=== PATIENT | male | born 1965 | race Caucasian/White ===

== ENCOUNTER 2018-12-21 16:28 | Emergency (ER) | payer BC ==
--- NOTE | 2018-12-21 16:39 | PDOC ---
Rapid Medical Evaluation Time Seen by Provider: 12/21/18 16:30 Medical Evaluation: 12/21/18 16:30 I have performed a brief in-person evaluation of this patient. The patient presents with a chief complaint of: chest pressure with SOB Pertinent physical exam findings: Lungs CTAB. RRR. No m/r/g. I have ordered the following: CXR, EKG, urine, labs The patient will proceed to the ED for further evaluation. Discharge Disposition - Diagnosis Chest tightness or pressure - Referrals - Patient Instructions - Post Discharge Activity
[2018-12-21 16:40] VITALS: TEMP 97.6; BMI 35.5
[2018-12-21 17:08] LABS: HEMATOCRIT 44.6 % (35.4-49); HEMOGLOBIN 15.9 GM/dL (11.7-16.9); MCH 31.9 pg (25.7-33.7); MCHC 35.6 g/dl (32.0-35.9); MEAN CELL VOLUME 89.7 fl (80-96); MEAN PLT VOLUME 7.9 fl (7.5-11.1); PLATELET COUNT 291 K/MM3 (134-434); RBC 4.97 M/mm3 (4.00-5.60); RDW 12.4 % (11.9-15.9); WHITE BLOOD COUNT 4.9 K/mm3 (4.0-10.0)
[2018-12-21 17:12] LABS: URINE APPEARANCE CLEAR; URINE BILIRUBIN NEGATIVE (<2.0 mg/dL); URINE COLOR LTYELLOW; URINE GLUCOSE (UA) NEGATIVE (NEGATIVE); URINE KETONE NEGATIVE (NEGATIVE); URINE LEUK ESTERASE NEGATIVE (NEGATIVE); URINE NITRITE NEGATIVE (NEGATIVE); URINE PROTEIN NEGATIVE (NEGATIVE); URINE UROBILINOGEN NEGATIVE mg/dL (0.2-1.0)
[2018-12-21 17:13] LABS: EPI CELLS RARE /HPF (FEW); URINE MUCUS RARE
--- NOTE | 2018-12-21 17:17 | PDOC ---
History of Present Illness - General Chief Complaint: Shortness of Breath Stated Complaint: SHORTNESS OF BREATH Time Seen by Provider: 12/21/18 16:30 History Source: Patient - History of Present Illness Presenting Symptoms: Chest Pain Timing/Duration: reports: constant Past History - Past Medical History Allergies/Adverse Reactions: Allergies Allergy/AdvReac Type Severity Reaction Status Date / Time No Known Allergies Allergy Verified 12/21/18 16:36 Home Medications: Ambulatory Orders NK [No Known Home Medication] 12/21/18 COPD: No - Immunization History Immunization Up to Date: Yes - Suicide/Smoking/Psychosocial Hx Smoking History: Never smoked Hx Alcohol Use: No Drug/Substance Use Hx: No Review of Systems - Review of Systems Constitutional: No: Chills, Fever, Weakness Respiratory: Yes: Shortness of Breath Cardiac (ROS): Yes: Chest Pain, Palpitations. No: Lightheadedness, Syncope ABD/GI: No: Nausea, Vomiting *Physical Exam - Vital Signs Last Vital Signs Temp Pulse Resp BP Pulse Ox 97.6 F 61 17 152/73 98 12/21/18 16:36 12/21/18 16:36 12/21/18 16:36 12/21/18 16:36 12/21/18 16:36 - Physical Exam General Appearance: Yes: Appropriately Dressed. No: Apparent Distress HEENT: positive: Normal Voice Neck: positive: Supple Respiratory/Chest: positive: Lungs Clear, Normal Breath Sounds. negative: Respiratory Distress Cardiovascular: positive: Regular Rate, S1, S2 Gastrointestinal/Abdominal: positive: Soft. negative: Tender, Pulsatile Mass Extremity: positive: Normal Inspection Integumentary: positive: Dry, Warm Neurologic: positive: Fully Oriented, Alert, Normal Mood/Affect Heart Score/ECG Review - History History: Slightly suspicious - Electrocardiogram EKG: Normal - Age Age: 45-65 - Risk Factors Based on the list above the patient has:: No risk factors known - Troponin Troponin: </= normal limit - Score Heart Score - Total: 1 Moderate Sedation - Procedure Monitoring Vital Signs: Procedure Monitoring Vital Signs Temperature 97.6 F 12/21/18 16:36 Pulse Rate 61 12/21/18 16:36 Respiratory Rate 17 12/21/18 16:36 Blood Pressure 152/73 12/21/18 16:36 O2 Sat by Pulse Oximetry (%) 98 12/21/18 16:36 ED Treatment Course - LABORATORY CBC & Chemistry Diagram: 12/21/18 17:08 12/21/18 17:08 - ADDITIONAL ORDERS Additional order review: Laboratory Results 12/21/18 12/21/18 12/21/18 17:50 17:08 17:08 PT with INR 10.70 INR 0.91 D-Dimer 396 Sodium 135 L Potassium 4.2 Chloride 100 Carbon Dioxide 29 Anion Gap 7 L BUN 17 Creatinine 1.1 Creat Clearance w eGFR > 60 Random Glucose 87 Calcium 8.7 Magnesium 2.3 Total Bilirubin 0.5 AST 57 H ALT 52 Alkaline Phosphatase 108 Creatine Kinase 2230 H Creatine Kinase Index 0.1 CK-MB (CK-2) 2.3 Troponin I 0.03 Total Protein 9.2 H Albumin 4.1 Urine Color Urine Appearance Urine pH Ur Specific [place] Urine Protein Urine Glucose (UA) Urine Ketones Urine Blood Urine Nitrite Urine Bilirubin Urine Urobilinogen Ur Leukocyte Esterase Urine WBC (Auto) Urine RBC (Auto) Ur Epithelial Cells Urine Mucus 12/21/18 17:00 PT with INR INR D-Dimer Sodium Potassium Chloride Carbon Dioxide Anion Gap BUN Creatinine Creat Clearance w eGFR Random Glucose Calcium Magnesium Total Bilirubin AST ALT Alkaline Phosphatase Creatine Kinase Creatine Kinase Index CK-MB (CK-2) Troponin I Total Protein Albumin Urine Color Ltyellow Urine Appearance Clear Urine pH 6.0 Ur Specific [place] 1.018 Urine Protein Negative Urine Glucose (UA) Negative Urine Ketones Negative Urine Blood 1+ H Urine Nitrite Negative Urine Bilirubin Negative Urine Urobilinogen Negative Ur Leukocyte Esterase Negative Urine WBC (Auto) <1 Urine RBC (Auto) 1 Ur Epithelial Cells Rare Urine Mucus Rare 12/21/18 17:08 RBC 4.97 MCV 89.7 MCHC 35.6 RDW 12.4 MPV 7.9 Neutrophils % No Result Required. Lymphocytes % No Result Required. - Medications Given in the ED: ED Medications Discontinued Medications Generic Name Dose Route Start Last Admin Trade Name Freq PRN Reason Stop Dose Admin Sodium Chloride 1,000 ml 12/21/18 18:36 12/21/18 18:36 Normal Saline - IV 12/21/18 18:37 1,000 ml NOW ONE Administration Medical Decision Making - Medical Decision Making 12/21/18 17:15 53 yo M, no sig hx, here w/ chest pain. Pt states 3 days ago, he felt sudden onset L sided CP w/ "electric shock" down his L arm. Also had some palpitations at that time. States symptoms resolved at some point but yesterday started having diffuse chest pressure that is constant with an intensity of 7 out of 10 with no exacerbating or alleviating factors. Also reports intermittent shortness of breath. No diaphoresis, nausea, vomiting, leg pain or swelling. No history of similar pain. States he had a negative stress test 3 years ago see exam R/o ACS, less likely dissection or PE -ekg -cxr -labs -dispo pending 12/21/18 19:01 Labs only remarkable for CK of > 2K, troponin negative. As discussed with Dr. Vitale, will give IV fluids and repeat troponin in 3 hours. At this point , patient was signed out to JEFFREY Cee *DC/Admit/Observation/Transfer Diagnosis at time of Disposition: Chest tightness or pressure - Referrals Referrals: Nando Hoffman [Primary Care Provider] - - Patient Instructions - Post Discharge Activity
[2018-12-21 17:19] LABS: INR 0.91 (0.83-1.09); PROTHROMBIN TIME (PATIENT) 10.7 SEC (9.7-13.0)
[2018-12-21 17:58] LABS: ALBUMIN 4.1 g/dl (3.4-5.0); ALK PHOS 108 U/L (45-117); ANION GAP 7 MMOL/L (8-16); BILIRUBIN,TOTAL 0.5 mg/dL (0.2-1); BLOOD UREA NITROGEN 17 mg/dL (7-18); CALCIUM 8.7 mg/dL (8.5-10.1); CHLORIDE 100 mmol/L (98-107); CO2 29 mmol/L (21-32); CREATININE 1.1 mg/dL (0.55-1.3); GLUCOSE,RANDOM 87 mg/dL (74-106); MAGNESIUM 2.3 mg/dL (1.8-2.4); POTASSIUM 4.2 mmol/L (3.5-5.1); SGOT/AST 57 U/L (15-37); SGPT/ALT 52 U/L (13-61); SODIUM 135 mmol/L (136-145); TOT PROT 9.2 g/dl (6.4-8.2)
[2018-12-21 18:24] LABS: PLATELET ESTIMATE ADEQUATE
[2018-12-21] MEDS ORDERED: SODIUM CHLORIDE 0.9% 500 ML INFUS.BAG IV ONE (18:36)
--- NOTE | 2018-12-21 19:54 | PDOC ---
*Physical Exam - Vital Signs Last Vital Signs Temp Pulse Resp BP Pulse Ox 97.6 F 61 17 152/73 98 12/21/18 16:36 12/21/18 16:36 12/21/18 16:36 12/21/18 16:36 12/21/18 16:36 ED Treatment Course - LABORATORY CBC & Chemistry Diagram: 12/21/18 17:08 12/21/18 17:08 - ADDITIONAL ORDERS Additional order review: Laboratory Results 12/21/18 12/21/18 12/21/18 17:50 17:08 17:08 PT with INR 10.70 INR 0.91 D-Dimer 396 Sodium 135 L Potassium 4.2 Chloride 100 Carbon Dioxide 29 Anion Gap 7 L BUN 17 Creatinine 1.1 Creat Clearance w eGFR > 60 Random Glucose 87 Calcium 8.7 Magnesium 2.3 Total Bilirubin 0.5 AST 57 H ALT 52 Alkaline Phosphatase 108 Creatine Kinase 2230 H Creatine Kinase Index 0.1 CK-MB (CK-2) 2.3 Troponin I 0.03 Total Protein 9.2 H Albumin 4.1 Urine Color Urine Appearance Urine pH Ur Specific [place] Urine Protein Urine Glucose (UA) Urine Ketones Urine Blood Urine Nitrite Urine Bilirubin Urine Urobilinogen Ur Leukocyte Esterase Urine WBC (Auto) Urine RBC (Auto) Ur Epithelial Cells Urine Mucus 12/21/18 17:00 PT with INR INR D-Dimer Sodium Potassium Chloride Carbon Dioxide Anion Gap BUN Creatinine Creat Clearance w eGFR Random Glucose Calcium Magnesium Total Bilirubin AST ALT Alkaline Phosphatase Creatine Kinase Creatine Kinase Index CK-MB (CK-2) Troponin I Total Protein Albumin Urine Color Ltyellow Urine Appearance Clear Urine pH 6.0 Ur Specific [place] 1.018 Urine Protein Negative Urine Glucose (UA) Negative Urine Ketones Negative Urine Blood 1+ H Urine Nitrite Negative Urine Bilirubin Negative Urine Urobilinogen Negative Ur Leukocyte Esterase Negative Urine WBC (Auto) <1 Urine RBC (Auto) 1 Ur Epithelial Cells Rare Urine Mucus Rare 12/21/18 17:08 RBC 4.97 MCV 89.7 MCHC 35.6 RDW 12.4 MPV 7.9 Neutrophils % No Result Required. Lymphocytes % No Result Required. - Medications Given in the ED: ED Medications Discontinued Medications Generic Name Dose Route Start Last Admin Trade Name Freq PRN Reason Stop Dose Admin Sodium Chloride 1,000 ml 12/21/18 18:36 12/21/18 18:36 Normal Saline - IV 12/21/18 18:37 1,000 ml NOW ONE Administration Medical Decision Making - Medical Decision Making Patient signed out to me by JEFFREY Foreman Patient currently resting in NAD. Mentions that after getting the IVF, he is feeling better and no longer having CP Repeat labs sent and pending 12/21/18 19:54 Repeat trop negative CK downtrending Patient HS of 1 Stable for dc 12/21/18 21:34 *DC/Admit/Observation/Transfer Diagnosis at time of Disposition: Chest tightness or pressure - Discharge Dispostion Disposition: HOME Condition at time of disposition: Improved Decision to Admit order: No - Referrals Referrals: Nando Hoffman [Primary Care Provider] - 2 Days - Patient Instructions Printed Discharge Instructions: DI for Chest Pain Additional Instructions: Thank you for choosing [facility]. It was a pleasure taking care of you. Your labs, chest xray and EKG here were reassuring. Please continue follow-up with your primary care doctor in 2-3 days. Return to the Emergency Department if your symptoms worsen or persist or have other concerning symptoms. - Post Discharge Activity
[2018-12-21 21:47] VITALS: BP 138/86; PULSE 59
--- NOTE | 2018-12-22 13:58 | EKG ---
Test Reason : Blood Pressure : / mmHG Vent. Rate : 055 BPM Atrial Rate : 055 BPM P-R Int : 210 ms QRS Dur : 092 ms QT Int : 398 ms P-R-T Axes : 036 -37 -19 degrees QTc Int : 380 ms SINUS BRADYCARDIA WITH 1ST DEGREE A-V BLOCK LEFT AXIS DEVIATION MODERATE VOLTAGE CRITERIA FOR LVH, MAY BE NORMAL VARIANT ABNORMAL ECG NO PREVIOUS ECGS AVAILABLE Confirmed by MD Roberto Carlos, Rob ([id number]) on 12/22/2018 1:58:34 PM Referred By: Confirmed By:Rob Azevedo MD
== END 2018-12-21 21:49 | disposition home or self-care (01) ==
LOC: JER 16:28
DX: R07.9 Chest pain, unspecified (principal)
CPT/HCPCS: 36415; 71046-TC-FY; 80053; 81003; 81015; 82550; 82553; 83735; 84484; 85025; 85379; 85610; 93005; 93010; 99283-25

== ENCOUNTER 2023-08-05 06:15 | Emergency (ER) | payer BC, OTHER ==
[2023-08-05 06:24] VITALS: RESP 18; TEMP 98.2; BMI 35.4
[2023-08-05 08:50] LABS: URINE APPEARANCE BLOODY; URINE BILIRUBIN NEGATIVE (NEGATIVE); URINE COLOR RED; URINE GLUCOSE (UA) NEGATIVE (NEGATIVE); URINE PROTEIN 3+ (NEGATIVE); URINE UROBILINOGEN NORMAL mg/dL (0.2-1.0)
[2023-08-05 09:01] LABS: BASO % 1.5 % (0-2.0); EOS % 4.8 % (0-4.5); HEMATOCRIT 41.9 % (35.4-49); HEMOGLOBIN 14.7 GM/dL (11.7-16.9); LYMPH % 49.1 % (8-40); MCH 30.7 pg (25.7-33.7); MCHC 35.1 g/dl (32.0-35.9); MEAN CELL VOLUME 87.7 fl (80-96); MEAN PLT VOLUME 7.6 fl (7.5-11.1); MONO % 7.1 % (3.8-10.2); NEUT % 37.5 % (42.8-82.8); PLATELET COUNT 290 10^3/uL (134-434); RBC 4.78 M/mm3 (4.00-5.60); RDW 12.5 % (11.9-15.9); WHITE BLOOD COUNT 4.9 K/mm3 (4.0-10.0)
[2023-08-05 09:20] LABS: POTASSIUM 4.7 mmol/L (3.5-5.1)
[2023-08-05 09:23] LABS: CALCIUM 8.9 mg/dL (8.5-10.1)
[2023-08-05 09:24] LABS: ALBUMIN 3.8 g/dl (3.4-5.0); BLOOD UREA NITROGEN 15.3 mg/dL (7-18)
[2023-08-05 09:28] LABS: TOT PROT 7.5 g/dl (6.4-8.2)
[2023-08-05 09:29] LABS: BILIRUBIN,TOTAL 0.5 mg/dL (0.2-1)
[2023-08-05 16:04] VITALS: BP 127/72; PULSE 63
== END 2023-08-05 16:19 | disposition home or self-care (01) ==
LOC: JER 06:15
PROC: 0T9B70Z Drainage of Bladder with Drainage Device, Via Natural or Artificial Opening (ICD-10-PCS; principal; 2023-08-05)
DX: R31.9 Hematuria, unspecified (principal); R10.9 Unspecified abdominal pain
CPT/HCPCS: 36415; 76775-TC; 76856-TC; 80053; 81003; 85025; 87086; 99284-25

== ENCOUNTER 2023-08-11 12:35 | Inpatient (IN) | payer BC, OTHER ==
[2023-08-11 12:44] VITALS: BMI 35.5
[2023-08-11] MEDS ORDERED: ACETAMINOPHEN 1000 MG/100 ML BAG IVPB ONE (13:25)
[2023-08-11 13:56] LABS: HEMOGLOBIN 13.6 GM/dL (11.7-16.9); MCH 30.5 pg (25.7-33.7); MCHC 33.9 g/dl (32.0-35.9); MEAN CELL VOLUME 89.9 fl (80-96); MEAN PLT VOLUME 7.7 fl (7.5-11.1); PLATELET COUNT 264 10^3/uL (134-434); RBC 4.46 M/mm3 (4.00-5.60); RDW 12.5 % (11.9-15.9); WHITE BLOOD COUNT 29.6 K/mm3 (4.0-10.0)
[2023-08-11] MEDS ORDERED: ACETAMINOPHEN INJECTION 100 ML IVPB ONE (13:56)
[2023-08-11 14:29] LABS: POTASSIUM 4.2 mmol/L (3.5-5.1)
[2023-08-11 14:32] LABS: ALBUMIN 3.4 g/dl (3.4-5.0); BLOOD UREA NITROGEN 14.8 mg/dL (7-18)
[2023-08-11 14:36] LABS: TOT PROT 7.3 g/dl (6.4-8.2)
[2023-08-11 14:37] LABS: BILIRUBIN,TOTAL 0.7 mg/dL (0.2-1)
[2023-08-11 14:45] LABS: ANISOCYTOSIS 0
[2023-08-11 14:50] LABS: CALCIUM 8.6 mg/dL (8.5-10.1); CREATININE 1.1 mg/dL (0.55-1.3)
[2023-08-11 16:51] LABS: EPI CELLS 0 /uL (0-25.1); HYALINE CASTS 1 /uL (0-3.1); URINE APPEARANCE CLEAR; URINE BACTERIA 5311 /uL (0-1359); URINE BILIRUBIN NEGATIVE (NEGATIVE); URINE COLOR YELLOW; URINE GLUCOSE (UA) NEGATIVE (NEGATIVE); URINE KETONE NEGATIVE (NEGATIVE); URINE LEUK ESTERASE 2+ (NEGATIVE); URINE NITRITE POSITIVE (NEGATIVE); URINE PROTEIN 1+ (NEGATIVE); URINE RBC 711 /uL (0-23.9); URINE WBC 693 /uL (0-25.8)
[2023-08-11] MEDS ORDERED: CEFTRIAXONE 1,000 MG in DEXTROSE 5%-WATER - 50 ML IVPB ONE (16:55)
[2023-08-11] MEDS ORDERED: CEFTRIAXONE 1 GM/50 ML BAG ONE (17:17)
[2023-08-12] MEDS: PIPERACILLIN/TAZOB 3.375 GM 3.375 GM in DEXTROSE 5%-WATER - 50 ML IVPB SCH ×3 (08:31→21:31)
[2023-08-12 08:58] LABS: HEMATOCRIT 42.8 % (35.4-49); MCH 29.6 pg (25.7-33.7); MCHC 32.7 g/dl (32.0-35.9); MEAN CELL VOLUME 90.4 fl (80-96); MEAN PLT VOLUME 7.9 fl (7.5-11.1); PLATELET COUNT 279 10^3/uL (134-434); RBC 4.74 M/mm3 (4.00-5.60); RDW 12.7 % (11.9-15.9); WHITE BLOOD COUNT 17.3 K/mm3 (4.0-10.0)
[2023-08-12 09:20] LABS: POTASSIUM 3.8 mmol/L (3.5-5.1)
[2023-08-12 09:21] LABS: CALCIUM 8.6 mg/dL (8.5-10.1)
[2023-08-12 09:22] LABS: ALBUMIN 3.4 g/dl (3.4-5.0); BLOOD UREA NITROGEN 13.9 mg/dL (7-18); MAGNESIUM 2.1 mg/dL (1.8-2.4)
[2023-08-12 09:25] LABS: PHOSPHOROUS 3.3 mg/dL (2.5-4.9)
[2023-08-12 09:26] LABS: BILIRUBIN,TOTAL 0.7 mg/dL (0.2-1)
[2023-08-12 09:27] LABS: TOT PROT 7.5 g/dl (6.4-8.2)
[2023-08-12] MEDS ORDERED: PIPERACILLIN/TAZOB 3.375 GM 3.375 GM in DEXTROSE 5%-WATER - 50 ML IVPB SCH ×3 (10:00→18:00)
[2023-08-12] MEDS: ENOXAPARIN NA (PORCINE) 40 MG/0.4 ML DISP.SYRIN SQ SCH (10:32)
[2023-08-12] MEDS ORDERED: COLCHICINE 0.6 MG CAP PO ONE (16:59)
[2023-08-12] MEDS ORDERED: COLCHICINE 0.6 MG TAB PO ONE ×2 (17:30→18:30)
[2023-08-13] MEDS: PIPERACILLIN/TAZOB 3.375 GM 3.375 GM in DEXTROSE 5%-WATER - 50 ML IVPB SCH (03:08)
[2023-08-13] MEDS: TAMSULOSIN HCL 0.4 MG CAP PO SCH (07:50)
[2023-08-13] MEDS ORDERED: PIPERACILLIN/TAZOB 3.375 GM 3.375 GM in DEXTROSE 5%-WATER - 50 ML IVPB SCH ×2 (09:00→09:30)
[2023-08-13] MEDS: COLCHICINE 0.6 MG TAB PO SCH ×2 (09:30→21:33)
[2023-08-13] MEDS: ENOXAPARIN NA (PORCINE) 40 MG/0.4 ML DISP.SYRIN SQ SCH (09:30)
[2023-08-13 09:59] LABS: HEMATOCRIT 43.3 % (35.4-49); HEMOGLOBIN 14.6 GM/dL (11.7-16.9); MCH 30.3 pg (25.7-33.7); MCHC 33.7 g/dl (32.0-35.9); MEAN CELL VOLUME 89.9 fl (80-96); MEAN PLT VOLUME 8.1 fl (7.5-11.1); PLATELET COUNT 299 10^3/uL (134-434); RBC 4.82 M/mm3 (4.00-5.60); RDW 12.6 % (11.9-15.9); WHITE BLOOD COUNT 10.9 K/mm3 (4.0-10.0)
[2023-08-13 10:06] LABS: POTASSIUM 4.2 mmol/L (3.5-5.1)
[2023-08-13 10:26] LABS: BLOOD UREA NITROGEN 10.9 mg/dL (7-18); CALCIUM 8.9 mg/dL (8.5-10.1)
[2023-08-13] MEDS ORDERED: POLYETHYLENE GLYCOL (HEALTHYLAX) 3350 17 GM PACKET PO PRN (10:48)
[2023-08-13 11:57] VITALS: RESP 18
[2023-08-13] MEDS: PIPERACILLIN/TAZOB 4.5 GM 4.5 GM in DEXTROSE 5%-WATER 100 ML IVPB SCH (17:18)
[2023-08-13] MEDS ORDERED: IBUPROFEN 400 MG TABLET (FP) PO ONE (18:31)
[2023-08-13] MEDS: PANTOPRAZOLE SODIUM 40 MG VIAL IVPUSH SCH (18:44)
[2023-08-14] MEDS: PIPERACILLIN/TAZOB 4.5 GM 4.5 GM in DEXTROSE 5%-WATER 100 ML IVPB SCH ×3 (01:50→18:18)
[2023-08-14] MEDS: TAMSULOSIN HCL 0.4 MG CAP PO SCH (08:06)
[2023-08-14 08:59] LABS: HEMATOCRIT 38.2 % (35.4-49); HEMOGLOBIN 13.2 GM/dL (11.7-16.9); MCH 30.7 pg (25.7-33.7); MCHC 34.6 g/dl (32.0-35.9); MEAN CELL VOLUME 88.9 fl (80-96); MEAN PLT VOLUME 7.7 fl (7.5-11.1); PLATELET COUNT 262 10^3/uL (134-434); RBC 4.29 M/mm3 (4.00-5.60); RDW 12.9 % (11.9-15.9); WHITE BLOOD COUNT 6.1 K/mm3 (4.0-10.0)
[2023-08-14] MEDS: COLCHICINE 0.6 MG TAB PO SCH ×2 (09:08→21:16)
[2023-08-14] MEDS: PANTOPRAZOLE SODIUM 40 MG VIAL IVPUSH SCH (09:09)
[2023-08-14 09:32] LABS: POTASSIUM 4.3 mmol/L (3.5-5.1)
[2023-08-14 09:34] LABS: BLOOD UREA NITROGEN 12.1 mg/dL (7-18); CALCIUM 8.5 mg/dL (8.5-10.1)
[2023-08-14] MEDS: ENOXAPARIN NA (PORCINE) 40 MG/0.4 ML DISP.SYRIN SQ SCH (10:58)
[2023-08-15] MEDS ORDERED: PIPERACILLIN/TAZOBACTAM 4.5 GM VIAL IVPB ONE (01:15)
[2023-08-15] MEDS: PIPERACILLIN/TAZOB 4.5 GM 4.5 GM in DEXTROSE 5%-WATER 100 ML IVPB SCH ×2 (01:21→09:22)
[2023-08-15] MEDS: TAMSULOSIN HCL 0.4 MG CAP PO SCH (08:07)
[2023-08-15] MEDS: ENOXAPARIN NA (PORCINE) 40 MG/0.4 ML DISP.SYRIN SQ SCH (09:22)
[2023-08-15] MEDS: PANTOPRAZOLE SODIUM 40 MG VIAL IVPUSH SCH (09:22)
[2023-08-15 09:42] LABS: HEMATOCRIT 40.6 % (35.4-49); MCH 30.9 pg (25.7-33.7); MCHC 34.5 g/dl (32.0-35.9); MEAN CELL VOLUME 89.6 fl (80-96); MEAN PLT VOLUME 7.8 fl (7.5-11.1); PLATELET COUNT 312 10^3/uL (134-434); RBC 4.53 M/mm3 (4.00-5.60); RDW 12.7 % (11.9-15.9); WHITE BLOOD COUNT 5.4 K/mm3 (4.0-10.0)
[2023-08-15 10:11] LABS: POTASSIUM 4.5 mmol/L (3.5-5.1)
[2023-08-15 10:12] LABS: CALCIUM 8.5 mg/dL (8.5-10.1)
[2023-08-15 10:13] LABS: BLOOD UREA NITROGEN 12.1 mg/dL (7-18)
[2023-08-15 14:24] VITALS: BP 127/74; PULSE 61; TEMP 98.2
[2023-08-16] MEDS ORDERED: PANTOPRAZOLE 40 MG TABLET PO SCH (10:00)
== END 2023-08-15 18:00 | disposition home or self-care (01) | DRG 698 ==
LOC: JER 12:35 → JERBED 18:26 → J6S 21:12
PROVIDERS: ADMIT Internal Medicine; ATTEND Internal Medicine
PROC: 0T2BX0Z Change Drainage Device in Bladder, External Approach (ICD-10-PCS; principal; 2023-08-11)
DX: T83.518A Infection and inflammatory reaction due to other urinary catheter, initial encounter (principal); A41.51 Sepsis due to Escherichia coli [E. coli]; N39.0 Urinary tract infection, site not specified; Y83.8 Other surgical procedures as the cause of abnormal reaction of the patient, or of later complication, without mention of misadventure at the time of the procedure; B95.2 Enterococcus as the cause of diseases classified elsewhere; B96.20 Unspecified Escherichia coli [E. coli] as the cause of diseases classified elsewhere; B96.5 Pseudomonas (aeruginosa) (mallei) (pseudomallei) as the cause of diseases classified elsewhere; E66.9 Obesity, unspecified; Z68.35 Body mass index [BMI] 35.0-35.9, adult; N40.0 Benign prostatic hyperplasia without lower urinary tract symptoms; M10.9 Gout, unspecified; K59.00 Constipation, unspecified; Z88.2 Allergy status to sulfonamides
CPT/HCPCS: 0241U-QW; 36415; 71045-TC-FY; 74178-TC; 80048; 80053; 81003; 83605; 83735; 84100; 85025; 85027; 87040; 87086; 87186; 93005; 93010; 99285-25; Q9967

== ENCOUNTER 2025-06-16 08:19 | Inpatient (IN) | payer BC, OTHER ==
[2025-06-16] MEDS ORDERED: morphine CARPU-JECT 4 MG/1 ML DISP.SYRIN IVPUSH ONE (09:09)
[2025-06-16 09:48] LABS: ABSOLUTE IMMATURE GRANULOCYTES 0.04 x10^3/uL (0.0-0.031); BASOPHILS # 0.06 x10^3/uL (0.01-0.08); EOSINOPHIL % 0.4 % (0.8-7.0); EOSINOPHILS # 0.05 x10^3/uL (0.04-0.54); MCHC 34.4 g/dl (32.3-36.5); MEAN CELL VOLUME 87.9 fl (79.0-92.2); MEAN PLT VOLUME 9.6 fl (9.4-12.4); MONOCYTE # 0.77 x10^3/uL (0.30-0.82); MONOCYTE % 6.0 % (5.3-12.2); RDW 11.9 % (12.2-16.1)
[2025-06-16] MEDS ORDERED: DOXYCYCLINE HYCLATE 100 MG TABLET PO ONE (09:49)
[2025-06-16] MEDS ORDERED: ONDANSETRON 4 MG/2 ML VIAL ONE (09:49)
[2025-06-16] MEDS ORDERED: CEFTRIAXONE 1 GM/50 ML BAG ONE (09:49)
[2025-06-16 09:51] LABS: EPI CELLS 3 /uL (0-25.1); HYALINE CASTS 51 /uL (0-3.1); URINE BACTERIA 46 /uL (0-1359); URINE BILIRUBIN NEGATIVE (NEGATIVE); URINE COLOR YELLOW; URINE GLUCOSE (UA) NEGATIVE (NEGATIVE); URINE KETONE NEGATIVE (NEGATIVE); URINE LEUK ESTERASE 2+ (NEGATIVE); URINE NITRITE NEGATIVE (NEGATIVE); URINE PROTEIN TRACE (NEGATIVE); URINE RBC 46 /uL (0-23.9); URINE UROBILINOGEN 0.2 mg/dL (0.2-1.0); URINE WBC 928 /uL (0-25.8)
[2025-06-16] MEDS: ONDANSETRON 4 MG/2 ML VIAL IVPUSH ONE (09:51)
[2025-06-16] MEDS: DOXYCYCLINE HYCLATE 100 MG TABLET PO ONE (09:52)
[2025-06-16 10:10] LABS: GLUCOSE,RANDOM 117.0 mg/dL (74-106); TOT PROT 8.6 g/dl (6.4-8.2)
[2025-06-16 10:11] LABS: CO2 22.0 mmol/L (21-32)
[2025-06-16] MEDS: LACTATED RINGERS SOLUTION 1000 ML INFUS.BAG IV ONE (10:11)
[2025-06-16 10:13] LABS: ALK PHOS 94.0 U/L (40-150)
[2025-06-16 10:15] LABS: SGPT/ALT 19.0 U/L (0-55)
[2025-06-16 10:16] LABS: CREATININE 0.76 mg/dL (0.55-1.3); SGOT/AST 64.0 U/L (5-34)
[2025-06-16 12:12] LABS: HIV INTERPRETATION NEGATIVE (NEGATIVE)
[2025-06-16 12:13] LABS: HCV DIAGNOSTIC IN-HOUSE W/RFLX NON-REACTIVE (NONREACTIVE)
[2025-06-16] MEDS ORDERED: HYDROmorphone HCL CARPU-JECT 2 MG/1 ML DISP.SYRIN ONE ×2 (12:44→14:44)
[2025-06-16] MEDS: HYDROmorphone HCL CARPU-JECT 2 MG/1 ML DISP.SYRIN IVPUSH ONE (12:52)
[2025-06-16 12:58] LABS: URINE APPEARANCE CLEAR
[2025-06-16] MEDS ORDERED: PANTOPRAZOLE 40 MG TABLET PO ONE (15:29)
[2025-06-16] MEDS: PANTOPRAZOLE 40 MG TABLET PO SCH (15:34)
[2025-06-16] MEDS: ENOXAPARIN NA (PORCINE) 40 MG/0.4 ML DISP.SYRIN SQ SCH (15:34)
[2025-06-16] MEDS: PIPERACILLIN/TAZOB 3.375 GM 3.375 GM in DEXTROSE 5%-WATER - 50 ML IVPB ONE (15:37)
[2025-06-16 17:22] LABS: ABSOLUTE IMMATURE GRANULOCYTES 0.08 x10^3/uL (0.0-0.031); BASOPHILS # 0.04 x10^3/uL (0.01-0.08); EOSINOPHIL % 0.0 % (0.8-7.0); EOSINOPHILS # 0.00 x10^3/uL (0.04-0.54); MCHC 34.4 g/dl (32.3-36.5); MEAN CELL VOLUME 87.1 fl (79.0-92.2); MEAN PLT VOLUME 9.6 fl (9.4-12.4); MONOCYTE # 1.06 x10^3/uL (0.30-0.82); MONOCYTE % 6.0 % (5.3-12.2); RDW 12.0 % (12.2-16.1)
[2025-06-16 17:49] LABS: GLUCOSE,RANDOM 110 mg/dL (74-106)
[2025-06-16 17:50] LABS: CO2 25 mmol/L (21-32)
[2025-06-16 17:54] LABS: CREATININE 0.69 mg/dL (0.55-1.3)
[2025-06-16] MEDS: D5-1/2NS+20 MEQ KCL - 20 MEQ/1,000 ML INFUS.BAG IV SCH (19:15)
[2025-06-16] MEDS: DOXYCYCLINE INJECTION 100 MG in DEXTROSE 5%-WATER 100 ML IVPB SCH (23:40)
[2025-06-17] MEDS: PIPERACILLIN/TAZOB 4.5 GM 4.5 GM in DEXTROSE 5%-WATER 100 ML IVPB SCH ×2 (00:40→02:46)
[2025-06-17] MEDS: ACETAMINOPHEN 1000 MG/100 ML BAG IVPB PRN (01:51)
[2025-06-17 05:53] VITALS: BMI 36.0
[2025-06-17 07:12] LABS: ABSOLUTE IMMATURE GRANULOCYTES 0.08 x10^3/uL (0.0-0.031); BASOPHILS # 0.08 x10^3/uL (0.01-0.08); EOSINOPHIL % 0.3 % (0.8-7.0); EOSINOPHILS # 0.04 x10^3/uL (0.04-0.54); MCHC 34.0 g/dl (32.3-36.5); MEAN CELL VOLUME 88.8 fl (79.0-92.2); MEAN PLT VOLUME 9.7 fl (9.4-12.4); MONOCYTE # 1.23 x10^3/uL (0.30-0.82); MONOCYTE % 7.7 % (5.3-12.2); RDW 11.7 % (12.2-16.1)
[2025-06-17 07:23] LABS: GLUCOSE,RANDOM 118.0 mg/dL (74-106)
[2025-06-17 07:25] LABS: CO2 27.0 mmol/L (21-32)
[2025-06-17 07:29] LABS: CREATININE 0.93 mg/dL (0.55-1.3)
[2025-06-17] MEDS: POTASSIUM CHLORIDE TABS 20 MEQ TABLET.ER (FP) PO SCH (10:19)
[2025-06-17] MEDS: D5-1/2NS+20 MEQ KCL - 20 MEQ/1,000 ML INFUS.BAG IV SCH (12:08)
[2025-06-17] MEDS: TAMSULOSIN HCL 0.4 MG CAP PO SCH (13:44)
[2025-06-17] MEDS: ALBUTEROL SO4 2.5/IPRATROPIUM 0.5 INH SOL 3 ML VIAL.NEB. NEB ONE (16:35)
[2025-06-17] MEDS: METHYLNALTREXONE BROMIDE 8 MG/0.4 ML SYRINGE SQ ONE (17:36)
[2025-06-17] MEDS: ALBUTEROL SO4 2.5/IPRATROPIUM 0.5 INH SOL 3 ML VIAL.NEB. NEB SCH (20:09)
[2025-06-17] MEDS: POLYETHYLENE GLYCOL (HEALTHYLAX) 3350 17 GM PACKET PO SCH (21:22)
[2025-06-17] MEDS: DOCUSATE SODIUM 100 MG CAPSULE (FP) PO SCH (21:22)
[2025-06-18 07:23] LABS: ABSOLUTE IMMATURE GRANULOCYTES 0.04 x10^3/uL (0.0-0.031); BASOPHILS # 0.05 x10^3/uL (0.01-0.08); EOSINOPHIL % 2.6 % (0.8-7.0); EOSINOPHILS # 0.30 x10^3/uL (0.04-0.54); MCHC 34.5 g/dl (32.3-36.5); MEAN CELL VOLUME 88.0 fl (79.0-92.2); MEAN PLT VOLUME 9.8 fl (9.4-12.4); MONOCYTE # 0.95 x10^3/uL (0.30-0.82); MONOCYTE % 8.1 % (5.3-12.2); RDW 11.8 % (12.2-16.1)
[2025-06-18 07:59] LABS: GLUCOSE,RANDOM 115.0 mg/dL (74-106)
[2025-06-18 08:00] LABS: CO2 25.0 mmol/L (21-32)
[2025-06-18 08:04] LABS: CREATININE 0.87 mg/dL (0.55-1.3)
[2025-06-18] MEDS ORDERED: ACETAMINOPHEN 1000 MG/100 ML BAG IVPB PRN (13:25)
[2025-06-18 14:31] VITALS: RESP 18
[2025-06-18] MEDS: DOCUSATE SODIUM 100 MG CAPSULE (FP) PO SCH (14:42)
[2025-06-18] MEDS: ALBUTEROL SO4 2.5/IPRATROPIUM 0.5 INH SOL 3 ML VIAL.NEB. NEB SCH (16:24)
[2025-06-18] MEDS: PIPERACILLIN/TAZOB 4.5 GM 4.5 GM in DEXTROSE 5%-WATER 100 ML IVPB SCH (17:46)
[2025-06-18] MEDS: D5-1/2NS+20 MEQ KCL - 20 MEQ/1,000 ML INFUS.BAG IV SCH ×2 (18:53→18:54)
[2025-06-18] MEDS: ALBUTEROL SO4 2.5/IPRATROPIUM 0.5 INH SOL 3 ML VIAL.NEB. NEB ONE ×2 (20:34→20:37)
[2025-06-18] MEDS: POLYETHYLENE GLYCOL (HEALTHYLAX) 3350 17 GM PACKET PO SCH (21:09)
[2025-06-18] MEDS: DOXYCYCLINE INJECTION 100 MG in DEXTROSE 5%-WATER 100 ML IVPB SCH (21:09)
[2025-06-19] MEDS: levoFLOXacin 500 MG, levoFLOXacin 250 MG PO SCH (06:08)
[2025-06-19 08:22] LABS: ABSOLUTE IMMATURE GRANULOCYTES 0.01 x10^3/uL (0.0-0.031); BASOPHILS # 0.04 x10^3/uL (0.01-0.08); EOSINOPHIL % 6.3 % (0.8-7.0); EOSINOPHILS # 0.46 x10^3/uL (0.04-0.54); MCHC 34.2 g/dl (32.3-36.5); MEAN CELL VOLUME 88.3 fl (79.0-92.2); MEAN PLT VOLUME 9.6 fl (9.4-12.4); MONOCYTE # 0.58 x10^3/uL (0.30-0.82); MONOCYTE % 7.9 % (5.3-12.2); RDW 11.7 % (12.2-16.1)
[2025-06-19 08:40] LABS: GLUCOSE,RANDOM 103.0 mg/dL (74-106)
[2025-06-19 08:41] LABS: CO2 26.0 mmol/L (21-32)
[2025-06-19 08:45] LABS: CREATININE 0.9 mg/dL (0.55-1.3)
[2025-06-19] MEDS: TAMSULOSIN HCL 0.4 MG CAP PO SCH (09:14)
[2025-06-19] MEDS: PANTOPRAZOLE 40 MG TABLET PO SCH (09:14)
[2025-06-19] MEDS: ENOXAPARIN NA (PORCINE) 40 MG/0.4 ML DISP.SYRIN SQ SCH (09:15)
[2025-06-19 09:36] VITALS: BP 122/84; PULSE 73; TEMP 100
[2025-06-19] MEDS ORDERED: POTASSIUM CHLORIDE TABS 20 MEQ TABLET.ER (FP) PO SCH (10:00)
== END 2025-06-19 10:19 | disposition home or self-care (01) | DRG 728 ==
LOC: JER 08:19 → JERBED 14:46 → J4W 23:27 → J5S 06-18 13:19
PROVIDERS: ADMIT Internal Medicine; ATTEND Internal Medicine
DX: N45.1 Epididymitis (principal); E87.1 Hypo-osmolality and hyponatremia; N39.0 Urinary tract infection, site not specified; N40.0 Benign prostatic hyperplasia without lower urinary tract symptoms; N50.812 Left testicular pain; K59.00 Constipation, unspecified; E87.6 Hypokalemia
CPT/HCPCS: 36415; 71045-TC-FY; 76870-TC; 80048; 80053; 81003; 83605; 85025; 86780; 86803; 87086; 87389; 87491; 87591; 87637-QW; 93005; 93010; 93306-TC; 94640; 99285-25